=== PATIENT | female | born 2000 | race Caucasian/White ===

== ENCOUNTER 2024-10-08 10:42 | Emergency (ER) | payer OTHER, SELFPAY ==
[2024-10-08 10:42] VITALS: BP 131/82; PULSE 90; RESP 14; TEMP 36; O2SAT 98; BMI 31.6
--- NOTE | 2024-10-08 12:41 | US_ITS ---
PROCEDURE: ABDOMEN LIMITED right upper quadrant 10/08/2024 REASON FOR EXAM: PAIN TECHNIQUE: Complete abdominal ultrasound prasad-scale images with color doppler. PATIENT PREPARATION: Per protocol COMPARISON: None FINDINGS: Liver: Measures 15.9 cm. The liver shows normal echogenicity. Gallbladder: There are stones in the dependent portion of the gallbladder. There is no gallbladder wall thickening or pericholecystic fluid. Huang's sign = negative. Common bile duct: 8.4 cm. Pancreas: Visualized portion of the pancreas is normal. Kidneys: The right kidney measures 9.5 cm. Aorta: Unremarkable IVC: Unremarkable Peritoneal Findings: There is no free fluid US/Abdomen Limited IMPRESSION: Cholelithiasis without ultrasonographic evidence of acute cholecystitis. Consi noah hepatobiliary scan for further characterization. Reading Location: [facility]
--- NOTE | 2024-10-08 12:41 | EX.ED.DYSGE1 ---
HPI History of Present Illness Chief Complaint: Abd Pain Informant: patient Narrative Narrative: 23-year-old female presenting to the emergency room out of concern for biliary colic. Patient states that she is 8 weeks . She states in March she was diagnosed with gallstones and since giving has had more frequent gallbladder attacks. She states that she is essentially had a continuous gallbladder attack since Monday. There are times her is gotten significantly better but is unsure if it ever was really gone away. She denies any fevers. She is breast-feeding. She states that she saw her primary care doctor and was given referral to general surgery has not seen them yet. She states that she is unsure about having a cholecystectomy and would prefer to have an ERCP. She states her gallbladder ultrasound was performed at another institution. She is not having pruritus or any jaundice. She states that when her gallbladder attack happens she feels it in her upper back and then becomes right upper quadrant to her right flank. She notes a diminished ability to eat and drink. She had a beef stick about 30 minutes ago and is currently holding a bottle of water. [facility] Medical History Gallstones Home Medications ?Medication ?Instructions ?Recorded ?Last Taken ?Type ondansetron 4 mg disintegrating 4 mg PO Q6H PRN PRN Nausea #15 tabs 10/08/24 Unknown Rx tablet oxycodone-acetaminophen 5 mg-325 1 tab PO Q6H PRN PRN Pain 3 days 10/08/24 Unknown Rx mg tablet #12 TABLETS pantoprazole 40 mg tablet,delayed 40 mg PO DAILY #14 tabs 10/08/24 Unknown Rx release Allergy/AdvReac Type Severity Reaction Status Date / Time No Known Allergies Allergy Verified 10/08/24 10:42 Family History no significant family his Surgical History no surgical history Social History Smoking Status: Never smoker ROS ROS ED Constitutional Constitutional ED: Denies chills, fever(s) or weight loss Eyes Eyes: Denies change in vision or diplopia ENT ENT ED: Denies ear pain, rhinorrhea or sore throat Cardiovascular Cardiovascular: Denies chest pain, orthopnea, palpitations or racing heartbeat Respiratory/Chest Respiratory/Chest: Denies cough, dyspnea or orthopnea Gastrointestinal Gastrointestinal: Reports abdominal pain, nausea and vomiting; Denies diarrhea Genitourinary Genitourinary ED: Denies dysuria, hematuria or urinary frequency Musculoskeletal Musculoskeletal: Reports back pain; Denies arthralgias or myalgias Integumentary Denies abscess or rash Neurologic Neurologic: Denies headache(s) or weakness Psychiatric Psychiatric: Denies anxiety, depression, suicidal ideation or suicidal thoughts Endocrine Endocrinology: Denies polydipsia, polyphagia or polyuria Allergic/Immunologic Allergic/Immunologic ED: Denies mouth swelling, tongue swelling or urticaria EXAM Physical Exam Const Vital Signs: 10/08/24 10:42 10/08/24 13:49 Temperature 96.8 F L Temperature Source Temporal Pulse Rate 90 62 Respiratory Rate 14 16 Blood Pressure 131/82 H 119/69 Blood Pressure Mean 98 85 Pulse Ox 98 98 Oxygen Delivery Method Room Air Room Air Positive well nourished and well developed General Appearance ED: well developed HEENT Reports normocephalic, head/scalp atraumatic and moist mucous membranes Eyes PERRL and EOMs intact bilaterally Neck no lymphadenopathy, supple and no JVD Resp normal respiratory effort and clear to auscultation bilaterally Cardio regular rate, regular rhythm and no murmurs GI normal to inspection, nondistended, normoactive bowel sounds and non-tender Palpation: soft; Negative for guarding or rebound tenderness present Back/Spine no CVA tenderness and normal ROM Extremity normal to inspection General Extremety ED: Negative for edema General Extremity: Negative for edema Neuro oriented x3 and CN's II-XII intact bilaterally Sensorium / Orientation: alert Motor Exam: strength 5/5 throughout Psych mental status grossly normal Mood & Affect: Negative for depressed or tearful Skin no rashes or lesions noted and no wounds MDM MDM MDM Narrative Medical decision making narrative: Differential diagnosis includes but not limited to biliary colic GERD peptic ulcer disease duodenal ulcer pancreatitis choledocholithiasis Patient's white count is 9.4 hemoglobin 20.7 platelet count is 481. NAC test is negative lipase 28 LFT showed an AST of 36 ALT of 40 normal total direct bilirubin alkaline phosphatase of 102. Gallbladder ultrasound was obtained which demonstrates cholelithiasis in the dependent portion. No. Cholecystic fluid. No significant dilatation of the common bile duct. Patient has been resting comfortably. Will write for to have patient Zofran Percocet and pantoprazole at home. She has a referral to Dr. Islas from primary care. I recommended that she try to make this appointment as soon as possible. Patient understands return instruction History & Record Review Discussion w/independent historian: Patient and Significant other Lab Data Attestation: I reviewed the patient's lab results. Labs: Laboratory Results - last 24 hr 10/08/24 12:43 WBC 9.4 RBC 4.41 Hgb 10.7 L Hct 35.4 L MCV 80.3 L MCH 24.3 L MCHC 30.2 L RDW Std Deviation 47.7 H RDW Coeff of Elvia 16.3 H Plt Count 481 H MPV 10.3 Immature Gran % (Auto) 0.200 Neut % (Auto) 63.0 Lymph % (Auto) 24.2 [place] % (Auto) 10.7 H Eos % (Auto) 1.4 Baso % (Auto) 0.5 Absolute Neuts (auto) 5.9 Absolute Lymphs (auto) 2.28 Nucleated RBC % 0 Sodium 140 Potassium 4.0 Chloride 102 Carbon Dioxide 22.1 Anion Gap 15 BUN 9 Creatinine 0.77 Estim Creat Clear Calc 106.81 Est GFR (MDRD) Non-Af 112 BUN/Creatinine Ratio 12.1 Glucose 69 L Calcium 9.5 Total Bilirubin 0.35 Direct Bilirubin 0.19 AST 36 H ALT 40 H Alkaline Phosphatase 102 Total Protein 7.8 Albumin 4.6 Globulin 3.3 Lipase 28 Serum , Qual NEGATIVE Radiography Diagnostic Testing: Clinical Impression(s) from Imaging Studies Abdomen Ultrasound 10/08/24 12:41 IMPRESSION: Cholelithiasis without ultrasonographic evidence of acute cholecystitis. Consider hepatobiliary scan for further characterization. Reading Location: [facility] Discharge Plan Triage Chief Complaint: Abd Pain ED Provider: Jose Cruz Powell Dx/Rx/DC Orders Clinical Impression: Biliary colic, Cholelithiasis, Nausea Instructions: ED Gallstones with Biliary Colic Prescriptions: New oxycodone-acetaminophen 5-325 mg tablet 1 tab PO Q6H PRN PRN (Reason: Pain) 3 Days Qty: 12 0RF ondansetron 4 mg tablet,disintegrating 4 mg PO Q6H PRN PRN (Reason: Nausea) Qty: 15 0RF pantoprazole 40 mg tablet,delayed release (DR/EC) 40 mg PO DAILY Qty: 14 0RF Primary Care Provider: Care Physician,No Primary Referrals: Mallory Stiles MD [Med Staff - Active Staff] - As soon as possible Care Physician,No Primary [Primary Care Provider] - Print Language: Cambodian Disposition Disposition: Home, Self Care
[2024-10-08 12:59] LABS: Absolute Lymphocyte Count 2.28 X10^3/uL (0.83-4.51); Absolute Neutrophil Count 5.9 X10^3/uL (2.0-7.7); Basophil# 0.05 X10^3/uL; Basophil% 0.5 % (0-1); Eosinophil# 0.13 X10^3/uL; Eosinophils% 1.4 % (0-5); Hematocrit 35.4 % (37-47); Hemoglobin 10.7 g/dL (12.0-15.0); Lymphocyte # 2.28 X10^3/ul (0.83-4.51); Lymphocyte % 24.2 % (19-41); Mean Corp Hgb Conc 30.2 g/dL (32-36); Mean Corpuscular Hgb 24.3 pg (27.0-32.0); Mean Corpuscular Volume 80.3 fL (81-99); Mean Platelet Vol. 10.3 fl (6.2-12.0); Monocyte# 1.01 X10^3/uL; Monocyte% 10.7 % (0-10); NRBC Flagged by Analyzer 0 % (0-5); Neutrophil # 5.94 X10^3/uL (2.7-7.7); Platelet Count 481 K/mm3 (150-450); RBC Distribution Width CV 16.3 % (11.6-14.6); RBC Distribution Width SD 47.7 fl (35.1-43.9); Red Blood Count 4.41 M/mm3 (4.2-5.4); White Blood Count 9.4 K/mm3 (4.4-11.0)
[2024-10-08 13:06] LABS: Internal QC Validated? YES +Cl - CLEAR BKGD; Pregnancy, Serum, hCG Quali. NEGATIVE Negative
[2024-10-08 13:24] LABS: AST(SGOT) 36 U/L (<=31); Alanine Aminotransfer ALT/SGPT 40 U/L (<=34); Albumin, Serum 4.6 g/dL (3.5-5.0); Alkaline Phosphatase 102 U/L (35-104); Bilirubin, Direct 0.19 mg/dL (0.00-0.30); Globulin 3.3 g/dL (2.2-4.2); Lipase 28 U/L (13-75); Protein, Total 7.8 g/dL (5.9-8.4); Total Bilirubin 0.35 mg/dL (0.00-1.30)
[2024-10-08 13:49] VITALS: BP 119/69; PULSE 62; RESP 16; O2SAT 98
[2024-10-08 14:06] LABS: Anion Gap 15 (5-15); BUN 9 mg/dL (4-19); BUN/Creat Ratio 12.1 RATIO (10-20); Calcium,Total 9.5 mg/dL (7.6-11.0); Carbon Dioxide 22.1 mmol/L (21.0-32.0); Chloride 102 mmol/L (98-108); Creatinine, Serum 0.77 mg/dL (0.70-1.20); EST Glomerular Filtration Rate 112 (>60); Estimated Creatinine Clearance 106.81 ml/min (50-250); Glucose 69 mg/dL (70-99); Sodium Level 140 mmol/L (133-145)
[2024-10-08 15:25] VITALS: BP 109/71; PULSE 89; RESP 16; TEMP 36.8; O2SAT 97
== END 2024-10-08 15:31 | disposition home or self-care (01) ==
PROVIDERS: Emergency Provider Emergency Medicine; Visit Provider Emergency Medicine
DX: K80.70 Calculus of gallbladder and bile duct without cholecystitis without obstruction (principal)
CPT/HCPCS: 76705; 80048; 80076; 83690; 84703; 85025; 99283; A4216

== ENCOUNTER 2024-10-25 06:17 | Day surgery (SDC) | payer SELFPAY ==
[2024-10-25] VITALS (8 sets, daily range): BP systolic 111–135; BP diastolic 68–90; PULSE 71–109; RESP 14–16; TEMP 35.9–36.8; O2SAT 93–99; BMI 31.1
--- NOTE | 2024-10-25 06:27 | EKG12_ITS ---
Test Reason : PRE-OP Blood Pressure : */* mmHG Vent. Rate : 73 BPM Atrial Rate : 73 BPM P-R Int : 108 ms QRS Dur : 84 ms QT Int : 352 ms P-R-T Axes : 41 57 35 degrees QTcB Int : 387 ms Sinus rhythm with short IN Otherwise normal ECG No previous ECGs available Confirmed by MARTIN HASKINS, MIGUEL ([id number]), manuscript editor KIM WILSON ([id number]) on 10/28/2024 9:47:16 AM Referred By: Mallory Stiles Confirmed By: MIGUEL SALAZAR MD
[2024-10-25 06:54] LABS: Internal QC Validated? YES +Cl - CLEAR BKGD; Pregnancy, Urine Negative Negative
--- NOTE | 2024-10-25 07:00 | PCM.PRE.AN2 ---
ASA Classification* ASA Classification ASA Classification: 3 Assessment & Plan Anesthesia* Anesthesia Assessment Anesthesia Assessment: Discussed sedation and/or anesthesia options, risks, benefits, and alternatives with patient/parents/legal guardian/POA. Questions invited. The patient/parents/legal guardian/POA seems to understand and agrees to proceed with anesthesia plan. Reviewed the physical assessment, medical history, allergy history and patient home medications list prior to surgery/procedure/anesthetic and documented any changes. Performed airway and anesthesia risk assessments. Anesthesia Type Anesthesia Type: MAC Anesthesia Focused Assessment* Airway Assessment Mouth opens: >3 cm Mallampati Score: II Focused Labs Anesthesia Preop lab: CBC WBC 9.4 K/mm3 (4.4-11.0) 10/08/24 12:43 10/08/24 RBC 4.41 M/mm3 (4.2-5.4) 10/08/24 12:43 10/08/24 Hgb 10.7 g/dL (12.0-15.0) L 10/08/24 12:43 10/08/24 Hct 35.4 % (37-47) L 10/08/24 12:43 10/08/24 Plt Count 481 K/mm3 (150-450) H 10/08/24 12:43 10/08/24 CHEMISTRY Potassium 4.0 mmol/L (3.3-5.1) 10/08/24 12:43 10/08/24 Sodium 140 mmol/L (133-145) 10/08/24 12:43 10/08/24 BUN 9 mg/dL (4-19) 10/08/24 12:43 10/08/24 Creatinine 0.77 mg/dL (0.70-1.20) 10/08/24 12:43 10/08/24 Glucose 69 mg/dL (70-99) L 10/08/24 12:43 10/08/24 COAG Urine Test Negative Negative 10/25/24 05:35 10/25/24 Pre-Assessment Diagnosis/Proposed Procedure Planned Operative Procedure(s): LASHANDA BIRMINGHAMEY JENNIFER Anesthesia History Anesthesia History - electrodynamicist: Anesthesia History - electrodynamicist Hx Hospitalization No 10/17/24 09:16 Any Problems With Anesthesia No: NO SURGERY HX 10/17/24 09:16 Cholinesterase deficiency No 10/17/24 09:16 You/Your Family Experience No 10/17/24 09:16 fever (hyperthermia) with Relationship Recent Exposure to Contagious Disease Does patient have nerve No 10/17/24 09:16 stimulator Patient instructed to have device shut off --Does patient have Pacemaker or ICD? When Was Last Pacemaker Check QUESTION #4 FULL TEXT: You/Your Family Experience fever (hyperthermia) with Anesthesia Last Oral Intake Last Oral intake: Last Oral Intake NPO since Meds taken in AM with sips of water? Meds patient instructed to take am of surgery PONV PONV - electrodynamicist: PONV - electrodynamicist Female Yes 10/17/24 09:16 HX of Motion Sickness No 10/17/24 09:16 HX of N/V After Surgery No 10/17/24 09:16 Non-Smoker Yes 10/17/24 09:16 Duration of Surgery greater No 10/17/24 09:16 than 60 minutes Number of Risk Factors 2 10/17/24 09:16 PONV Score Moderate Risk 10/17/24 09:16 Height & Weight Height & Weight: Anesthesia: Height & Weight Height 5 ft 1 in 10/15/24 13:05 Respiratory Assessment Respiratory Assessment - electrodynamicist: Respiratory Tract Infection Hx - electrodynamicist Hx Respiratory Tract Infection No: HEAD COLD 10/17/24 09:16 STOP Sleep Apnea STOP Sleep Apnea - electrodynamicist: STOP Sleep Apnea - electrodynamicist Hx Hypertension No 10/17/24 09:16 Hx Sleep Apnea No 10/17/24 09:16 CPAP BIPAP Do you snore loudly (louder No 10/17/24 09:16 than talking or can be heard Do you often feel tired/ No 10/17/24 09:16 fatigued/ sleepy during daytime? Has anyone observed you stop No 10/17/24 09:16 breathing during sleep? STOP Results Negative 10/17/24 09:16 QUESTION #5 FULL TEXT : Do you snore loudly (louder than talking or can be heard through closed doors)? 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 Specify any problems Hx of Preganancy in last 3 Yes 10/17/24 09:16 Months Nurse Filling Out Transfusion DSCHRIBER 10/17/24 09:16 & Questions: Date: 10/17/24 10/17/24 09:16 Time: 09:18 10/17/24 09:16 Patient unable to answer at this time (ie. confused, unrespo /Reproduction History /Reproductive History - electrodynamicist: /Reproductive Hx- electrodynamicist Hx Now No 10/17/24 09:16 Gestational Age (in weeks): EDC: Hx Hx Para Hx Section SAB Yes 10/17/24 09:16 Active Medications Active Medications: Current Medications Generic Name Dose Route Start Last Admin Trade Name Freq PRN Reason Stop Dose Admin Cefazolin Sodium 2 gm/ Sodium 110 mls @ 150 mls/hr 10/25/24 07:30 Chloride IV 10/25/24 08:13 INTRAOP ONE Lactated Ringer's 1,000 mls @ 15 mls/hr 10/25/24 06:30 IV .Q48H TAMEKA PFSH Medical History History of a child Wears glasses Anemia Heartburn Non-smoker Epigastric pain Gallstones Home Medications ?Medication ?Instructions ?Recorded ?Last Taken ?Type vitamin 1 tab PO DAILY 10/15/24 Unknown History GI SUPPORT 1 cap PO DAILY 10/17/24 Unknown History Lactobacillus acidophilus 10 100 mmu cells PO DAILY 10/17/24 Unknown History billion cell capsule (Probiotic) Allergy/AdvReac Type Severity Reaction Status Date / Time tomato Allergy Intermediate Itching Verified 10/25/24 06:46 [place] And Derivatives AdvReac Intermediate Itching Verified 10/25/24 06:46 Surgical History No history of previous surgery Social History Smoking Status: Never smoker alcohol intake: never substance use type: does not use Review of Systems (Anesthesia) ROS Narrative System reviewed and no additional complaints, except as documented.
[2024-10-25] MEDS: Lactated Ringers 1,000 ML 15 ML IV (07:12)
--- NOTE | 2024-10-25 07:13 | HP.PCM_ITS ---
History and Physical Date of Admission: 10/25/24 Date of Service: 10/15/24 MR#: [id number] Acct: [id number] Name: MIGUEL RILEY Rep #: [id number] : 2000 Provider: Dr. Mallory Stiles MD Age/Sex: 23/F Location: [facility] Status: Signed Intake Vital Signs 10/08/2509:42 10/15/2512:05 Height 5 ft 1 in 5 ft 1 in Weight: 170 lb 6 oz BMI 32.1 BP 120/84 H Blood Pressure Location Rt brachial Position Sitting Respiration 17 Pulse 63 Pulse Source Monitor Temp 97.3 F L Temp Source Temporal Pulse Oximetry (%) 100 Oxygen Delivery Method room air Intake Visit Reasons: GALLBLADDER- SELF PAY Chief Complaint: gallbladder- self pay Accompanied by: Allergies tomato Allergy (Intermediate, Verified 10/15/24 13:10) ItchingCitrus And Derivatives Adverse Reaction (Intermediate, Verified 10/15/24 13:10) Itching PFSH Medical History (Updated 10/16/24 @ 15:[address] Mallory Stiles MD) Gallstones Social History (Updated 10/15/24 @ 13:05 by Yanely Tran LPN) Smoking Status: Never smoker alcohol intake: never substance use type: does not use HPI HPI HPI: 23-year-old female presents due to right upper quadrant pain going to back. Patient states she gets it mostly in the evening occurs after eating greasy foods or starches per patient. Increase in frequency more recently. Patient is 2 months. Patient denies any reflux and only rarely during . Patient ultrasound showed gallstones normal wall normal common bile duct. Patient's LFTs were slightly elevated AST and ALT but normal total bilirubin and alk phos. Patient had a home did not have previous LFTs prior to that. However patient does state that the pain has been worse more recently. Patient has been trying avoid fatty or greasy foods. ROS General General: No weight change, appetite, fatigue, colon cancer, breast cancer or weakness HEENT HEENT: No difficulty swallowing, eye injury, eye surgery, swollen glands or hoarseness Endo Endocrine: No thyroid disease, diabetes mellitus, thyroid cancer, Hair loss, heat intolerance or cold intolerance Skin Skin: No rash or changing moles Musc Musculoskeletal: No back problems, arthritis, rheumatoid arthritis, gout or joint pain Cardio Cardiovascular: No murmur, pacemaker, heart disease, atrial fibrillation, high blood pressure, heart attack, heart stent, palpitations, shortness of breath with exertion or chest pain Psych Psychiatric: No depression, anxiety or hearing voices Resp Respiratory: No shortness of breath, No sleep apnea, No cough, No COPD, No asthma, No emphysema and No wheezing Gastro Gastrointestinal: Yes abdominal pain, Yes nausea or vomiting, No diarrhea, No constipation, No blood in stool, No acid reflux, Yes hemorrhoids, No ulcers, Yes gallbladder problem and No black,tarry stools Francis Hematologic: No blood thinners, No blood disorders, No bleeding, No anemia and No blood clots Neuro Neurologic: No numbness, No tingling and No weakness Exam Const General: cooperative, healthy appearing, comfortable and no acute distress HENMT Head: normocephalic and atraumatic Neck Neck: supple Resp Effort & Inspection: normal respiratory effort Cardio Rate: regular rate GI Inspection: non-distended Palpation: soft and nontender Skin General: no rashes or lesions noted Neuro General: CN's II-XI intact bilaterally Extrem General: normal to inspection Psych Mental Status: mental status grossly normal Attitude: cooperative Assessment and Plan Assessment and Plan (1) Cholelithiasis: Status: Chronic (2) RUQ pain: Status: Acute Medications: Discontinued ondansetron Discontinued Reason: Pt no longer taking 4 mg PO Q6H PRN PRN 15 tabs 0RF Nausea oxycodone-acetaminophen 5-325 mg Discontinued Reason: Pt no longer taking 1 TAB PO Q6H PRN 3 days PRN 12 TABLETS 0RF Pain K80.50 - Calculus of bile duct without cholangitis or cholecystitis without obstruction pantoprazole Discontinued Reason: Pt no longer taking 40 mg PO DAILY 14 tabs 0RF Plan Reviewed the anatomy with the patient and discussed the procedure: Robotic/laparoscopic cholecystectomy with possible cholangiograms, possible open. Review risks including but not limited to bleeding, infection, hernia, darlene e leak, retained gallstones requiring another procedure ERCP- Endoscopic Retrograde Cholangiopancreatography, injury to another organ (bile ducts, common bile duct, small bowel, etc.) and conversion to an open procedure. All questions were answered. Mallory Stiles M.D. Pager: [phone] [facility] [address] [place] [address], [facility], [address] [place] [address] Office: [phone] Coding Level of Care Code Off vis,new,level 3 Diagnoses Cholelithiasis K80.20 RUQ pain R10.11 10/16/24 1511 <Electronically signed by Mallory Stiles MD> Date Mallory Stiles MD
[2024-10-25] MEDS: Cefazolin 2 GM in 0.9% Normal Saline (100mL Bag) 100 ML IV (07:27)
--- NOTE | 2024-10-25 07:30 | GALL_PTH ---
PATIENT: MIGUEL RILEY LOC: [facility] [place] U#:[id number] AGE/SX: 23/F ROOM: RE10/25/[address]: Dr. Mallory Stiles MD : 2000 BED: DIS: 10/25/2024 SPEC #: [id number] RECD: 10/25/24 11:32 STATUS: SULAIMAN REDmitriy #: [id number] RITA: 10/25/24 07:[address]: Mallory Stiles DEPT: SURGICAL PATHOLOGY RECD BY: Rob Shi ENTERED: 10/25/24 12:14 SP TYPE: INA COLON DR: PARIS Ureña Tissues: A - Gallbladder, NOS Procedures: Surgery Specimen Level III HEADER OPERATION: Laparoscopic cholecystectomy with IOC PRE-OP DIAGNOSIS: Cholelithiasis, right upper quadrant pain TISSUE SUBMITTED: A- Gallbladder MICROSCOPIC DIAGNOSIS A. Gallbladder, cholecystectomy: * Mild chronic cholecystitis with cholelithiasis MICROSCOPIC DESCRIPTION Slides are reviewed. GROSS DESCRIPTION A. Received in formalin in a container labeled with the patient's name, date of , and gallbladder is an 8.3 x 2.7 x 2.5 cm intact cholecystectomy specimen. A clamped possible cystic duct margin is identified measuring 0.3 cm in length by 0.3 cm in diameter (inked black). Adjacent to the possible cystic duct margin is a 0.6 x 0.4 x 0.3 cm pereira-bowers, rubbery lymph node candidate. The serosa is within normal limits, and the specimen is opened to reveal an abundance of thin green bile with multiple green, spherical, and friable stones measuring 2.0 x 2.0 x 0.4 cm in aggregate. The mucosa is bile-stained green, somewhat trabecular, with a scant amount of denuded foci. There is an average wall thickness of 0.4 cm. Clinical Field Specialist sections:A1. Possible cystic duct margin, en face with periductal lymph node candidate bisectedA 2. Full-thickness sections [facility] 10-28-2024 CPT:[id number]
--- NOTE | 2024-10-25 07:46 | RAD_ITS ---
PROCEDURE: CHOLANGIOGRAM/ O R,INITIAL 10/25/2024 REASON FOR EXAM: CHOLECYSTETOMY WITH IOC TECHNIQUE: Intraoperative cholangiogram performed by the surgeon. 9.1 seconds of fluoroscopy. 3.87 mGy COMPARISON: None FINDINGS: Intraoperative cholangiogram was performed. There is opacification of the intra and extrahepatic biliary ducts. No intraluminal filling defect is seen. There is free flow of contrast into the duodenum. RAD/Cholangiogram/ O R,Initial IMPRESSION: Unremarkable intraoperative cholangiogram. Reading Location: [id number]
[2024-10-25] MEDS: Bupivacaine Mpf 0.5% 30 ML VIAL (07:50)
[2024-10-25 08:20] LABS: AST(SGOT) 51 U/L (<=31); Alanine Aminotransfer ALT/SGPT 59 U/L (<=34); Albumin, Serum 4.5 g/dL (3.5-5.0); Alkaline Phosphatase 107 U/L (35-104); Bilirubin, Direct 0.13 mg/dL (0.00-0.30); Globulin 2.9 g/dL (2.2-4.2); Protein, Total 7.4 g/dL (5.9-8.4); Total Bilirubin 0.26 mg/dL (0.00-1.30)
--- NOTE | 2024-10-25 08:56 | OP.PCM_ITS ---
Operative Report (Standard) Operative Information Date of Procedure: 10/25/24 Pre-Operative Diagnosis: Cholelithiasis, right upper quadrant pain Post-Operative Diagnosis: Acute calculus cholecystitis Surgery/Procedure Performed: Laparoscopic cholecystectomy with cholangiograms radioactivity technician: Yes Manager Strategic Development: Flavia Figueroa Tasks completed by hearing and speech assistant: Opening & closing and Retracting Type of Anesthesia: General/Supplemental RN Documented Start/Stop Times: Operation Date: 10/25/24 07:30 Case Time Into Pre-Op 10/25/24 06:22 Out of Pre-Op 10/25/24 07:22 Anesthesia Start 10/25/24 07:27 Into Room 10/25/24 07:27 Procedure Start 10/25/24 07:44 Procedure End 10/25/24 08:53 Procedure Start Time: 07:44 Procedure Stop Time: 08:53 Select all DRAINS/GRAFTS/IMPLANTS that apply: None Special Medications: Ancef 3 g IV x 1 Estimated Blood Loss: 20 cc Specimen collected: Yes Description of specimen(s) removed: Gallbladder Description of surgery: Indications: this is a 23 year-old female who developed abdominal pain/nausea/vomiting and on workup was found to have cholelithiasis, with a normal common bile duct, elevated AST and ALT. Laparoscopic cholecystectomy with cholangiograms was elected. Description procedure: The patient was placed on operating table in supine position. A timeout was completed verifying correct patient, procedure, site, position and special equipment prior to beginning procedure. General Anesthesia was induced. The abdomen was prepped and draped in usual sterile fashion. An incision was made in the natural skin line above the umbilicus. The fascia was elevated and incised. The peritoneum was elevated and incised. Entry into the peritoneum was confirmed visually and no bowel was noted in the vicinity of the incision. Vines trocar was placed. The abdomen was insufflated with carbon dioxide to a pressure of 12-15 mmHg. Patient tolerated insufflation well. The laparoscope was then inserted and abdomen inspected. No injuries from initial trocar placement were noted. Additional trochars were then inserted in the following locations 5 mm trocar in the epigastrium and 2 more 5 mm trochars along the right costal margin. The abdomen was inspected no abnormalities were found. The table is placed in reverse Trendelenburg position with the right side up. The dome of the gallbladder was grasped with atraumatic grasper passed through the lateral port and retracted over the dome of the liver. Infundibulum was then grasped with atraumatic grasper through the midclavicular port and retracted to the right lower quadrant. The cystic artery was anterior to the duct was dissected and triply clipped in order to visualize the cystic duct. The peritoneum overlying the gallbladder infundibulum was then incised and cystic duct identified and circumferentially dissected. Crespo catheter was used for cholangiograms. The cholangiogram showed good filling of dilated common bile duct into the duodenum with no filling defects, good filling of the right and left bile ducts as well. The cystic duct was then doubly clipped and divided close to the gallbladder. The gallbladder then dissected from its peritoneal attachments by electrocautery?noted to have edema in this plane consistent with acute cholecystitis. Hemostasis was checked and the gallbladder was removed using the endoscopic retrieval bag through the umbilical port. The gallbladder is passed off table as specimen. The gallbladder fossa was irrigated with saline and hemostasis obtained. There is no evidence of bleeding from the gallbladder fossa or cystic artery leakage of bile from the cystic duct stump. Secondary trochars removed under direct vision. No bleeding was noted the trocar sites. The laparoscope was withdrawn and umbilical trocar removed. The abdomen was allowed to collapse. The fascia of the 12 mm trocar was closed with a [id number] 0 Vicryl suture. The skin was closed with sutures of 4-0 Monocryl and Steri-Strips. The patient was extubated. The patient tolerated procedure well and was taken to the postanesthesia care unit in stable condition. Surgical Findings: See operative report Complications Complications: No
--- NOTE | 2024-10-25 09:00 | EX.PCM.DISCH ---
Discharge Instructions Diet Discharge Diet: Light diet - advance as tolerated Activity Discharge Activity: May Not Drive (while taking narcotic pain medications.) May shower in (days): 1 Lifting Restrictions: no lifting >20 lbs x 2 wks, no strenuous exercise for 4 wks Dressing / Incision Call your doctor if your incision/area has: Continuous Slow Oozing, Sudden Increased Bleeding, Increased Pain/ Swelling, Increased Redness, Foul Smelling Discharge and Swelling at the incision site Call your doctor if you observe: Fever of 101 or Higher Remove Dressing in: 2 days Cleanse incision/area with: Soap & Water Additional Dressing/Incision Instructions:: Steri-Strips will fall off in 7 to 10 days, if they do not fall off okay to remove after 10 days. Follow Up Care Please Follow Up With: Mallory Stiles MD When: Call the office for a follow-up appointment 2 weeks; after 5 PM and on the weekends call [phone] with any concerns. Test Results: Test results from this visit will be discussed in further detail at your follow-up appointment, if applicable. Discharge Plan Admission Attending Provider: Mallory Stiles Primary Care Provider: Korin Nguyen Instructions Print Language: [place] Discharge Orders/Prescriptions Prescriptions: New oxycodone 5 mg capsule 5 mg PO Q6H PRN (Reason: pain) 3 Days Qty: 10 0RF Continued vitamin 1 tab PO DAILY GI SUPPORT 1 cap PO DAILY Probiotic 10 billion cell capsule 100 mmu cells PO DAILY Referrals / Follow Up: Korin Nguyen PA [Primary Care Provider] - Disposition Disposition (needs filled in before D/C Order can be placed): Home, Self Care
--- NOTE | 2024-10-25 09:12 | PCM.POST.ANE ---
Anesthesia: Postop Eval I Current Vital Signs Temperature: 96.6 F Pulse Rate: 90 Blood Pressure: 127/85 Respiratory Rate: 14 Pulse Ox: 95 Assessment Airway patent: Yes Spontaneous unlabored respirations: Yes nausea: No Vomiting: No Anesthesia Complication: No Fluid Hydration Crystalloid volume administer (ml): 1,200 Total IV fluid infused: 1,200 Progress Note Anesthesia document: Postop Eval 1 completed: Yes
--- NOTE | 2024-10-25 09:20 | POSTOPAN2_ITS ---
Anesthesia Postop Eval I Sum Postop Eval Completion status Anesthesia document: Postop Eval 1 completed: Yes Anesthesia Postop Eval I Summary Anesthesia Postop Eval I Summary: Anesthesia Postop Eval I: Assessment Summary Airway patent Yes 10/25/24 09:12 [email or web address] Spontaneous unlabored Yes 10/25/24 09:12 [email or web address] respirations Mental status nausea No 10/25/24 09:12 [email or web address] Vomiting No 10/25/24 09:12 [email or web address] Anesthesia Postop Eval I: Fluid Summary Crystalloid volume administer 1,200 10/25/24 09:12 [email or web address] (ml) Colloids volume administered ( ml) Blood Product volume administered (ml) Total IV fluid infused 1,200 10/25/24 09:12 [email or web address] Anesthesia Postop Eval I: Summary Notes Anesthesia Complication No 10/25/24 09:12 [email or web address] Anesthesia Complication Comment: Post-operative progress note Anesthesia: Postop Eval II Evaluation Mental status: Awake Pain Level: 0 nausea: No Vomiting: No
--- NOTE | 2024-10-25 09:20 | PCM.POSTANE2 ---
Anesthesia Postop Eval I Sum Postop Eval Completion status Anesthesia document: Postop Eval 1 completed: Yes Anesthesia Postop Eval I Summary Anesthesia Postop Eval I Summary: Anesthesia Postop Eval I: Assessment Summary Airway patent Yes 10/25/24 09:12 MEDICAL EQUIPMENT [email or web address] Spontaneous unlabored Yes 10/25/24 09:12 MEDICAL EQUIPMENT [email or web address] respirations Mental status nausea No 10/25/24 09:12 MEDICAL EQUIPMENT [email or web address] Vomiting No 10/25/24 09:12 MEDICAL EQUIPMENT [email or web address] Anesthesia Postop Eval I: Fluid Summary Crystalloid volume administer 1,200 10/25/24 09:12 MEDICAL EQUIPMENT [email or web address] (ml) Colloids volume administered ( ml) Blood Product volume administered (ml) Total IV fluid infused 1,200 10/25/24 09:12 MEDICAL EQUIPMENT [email or web address] Anesthesia Postop Eval I: Summary Notes Anesthesia Complication No 10/25/24 09:12 MEDICAL EQUIPMENT [email or web address] Anesthesia Complication Comment: Post-operative progress note Anesthesia: Postop Eval II Evaluation Mental status: Awake Pain Level: 0 nausea: No Vomiting: No
== END 2024-10-25 12:15 | disposition home or self-care (01) ==
LOC: SDC 06:20 → AC 06:23
PROVIDERS: Anesthesiology; Referring Provider Surgery; Visit Provider Surgery
PROC: (CPT 47610; principal; 2024-10-25 07:10)
DX: K80.12 Calculus of gallbladder with acute and chronic cholecystitis without obstruction (principal)
CPT/HCPCS: 47563; 74300; 76000; 80076; 81025; 88304; 93005; J2405